=== PATIENT | female | born 1945 | race Caucasian/White ===

== ENCOUNTER 2017-02-04 19:55 | Emergency (ER) | payer MEDICARE, BC ==
[~2017-02-04 19:55] MED LIST: ASPI-495 PO; CITA10TA17 PO
--- NOTE | 2017-02-04 20:11 | NUR ---
PT TOLD THERE WAS GOING TO BE A WAIT AND TP STATES SHE DOESNT WANT TO WAIT AND WILL GO SEE HER PMD TOMORROW INSTEAD
== END 2017-02-04 20:13 | disposition left against medical advice (07) ==
LOC: ER 19:56
DX: Z53.21 Procedure and treatment not carried out due to patient leaving prior to being seen by health care provider (principal)